=== PATIENT | female | born 1940 | race Caucasian/White ===

== ENCOUNTER → 2021-01-21 | Outpatient (CLI) | payer MEDICARE, BC ==
[~2021-01-21] VITALS: Ht 167.6 cm; Wt 64.8 kg
[2021-01-21] VITALS (11 sets, daily range): BP systolic 126–149; BP diastolic 81–95; PULSE 89–123; TEMP 99
[~2021-01-21] MED LIST: ADVIL200 MG PO; BROVANA15 MCG/2 M IH; CITRACAL PETITE1 TAB PO; FLONASEALLERGY NS; NATURAL IRON65 MG PO; PEPCID 20MG TAB20 MG PO; PROAIR HFA0.09 MG/AC IH; VITAMIND3 5000 PO; YUPELRI175 MCG/3 IH
--- NOTE | 2021-01-21 13:00 | NUR ---
pt to ct per wheelchair. Pt positioned in supine position on ct table. Monitors applied. O2 on at 3l/nc.
--- NOTE | 2021-01-21 13:10 | NUR ---
Dr Ryan into room and talks with pt.
--- NOTE | 2021-01-21 13:15 | NUR ---
Specimen obtained and placed in formalin by Dr Ryan. Specimen labeled.
--- NOTE | 2021-01-21 14:13 | NUR ---
Pts daughter returns and brings pt some food to eat.
== END ==
LOC: COL.RAD 11:34
DX: C34.12 Malignant neoplasm of upper lobe, left bronchus or lung (principal); R74.8 Abnormal levels of other serum enzymes